=== PATIENT | female | born 1985 | race African-American/Black ===

== ENCOUNTER 2016-05-22 10:43 | Emergency (ER) | payer MEDICAID ==
[~2016-05-22] VITALS: Ht 172.7 cm; Wt 100.0 kg
[2016-05-22 10:55] VITALS: BP 158/95
[2016-05-22] MEDS ORDERED: FAMOTIDINE 20 MG/2 ML ONE (11:24)
[2016-05-22] MEDS ORDERED: METOCLOPRAMIDE 5 MG/ML, 2ML ONE (11:24)
[2016-05-22] MEDS ORDERED: FAMOTIDINE 20 MG/2 ML IVP ONE (11:30)
[2016-05-22] MEDS ORDERED: SODIUM CHLORIDE FLUSH 10ML SYR IVF ONE (11:30)
[2016-05-22] MEDS ORDERED: METOCLOPRAMIDE 5 MG/ML, 2ML IVPush ONE (11:30)
[2016-05-22] MEDS ORDERED: SODIUM CHLORIDE 0.9% 1,000ML IVBOLUS ONE (11:30)
[2016-05-22 11:50] LABS: HEMOGLOBIN 11.9 g/dL (11.7-16.4)
[2016-05-22 11:55] LABS: BLOOD UREA NITROGEN 14 mg/dL (7-18)
[2016-05-22 12:23] LABS: HCG UR OBC PASS
== END 2016-05-22 13:27 | disposition home or self-care (01) ==
LOC: ED 12:25
DX: K29.00 Acute gastritis without bleeding (principal); I10 Essential (primary) hypertension; K21.9 Gastro-esophageal reflux disease without esophagitis; E66.9 Obesity, unspecified; F17.210 Nicotine dependence, cigarettes, uncomplicated
CPT/HCPCS: 36415; 80048; 81001; 81025; 82040; 85025; 87086; 96361; 96374; 96375; 99285; J2765; J7030; S0028

== ENCOUNTER 2016-11-01 10:53 | Emergency (ER) | payer MEDICAID ==
[~2016-11-01] VITALS: Ht 167.6 cm; Wt 119.0 kg
[2016-11-01 10:56] VITALS: BP 133/85
[2016-11-01] MEDS ORDERED: BUPR150T73 PO (11:23)
[2016-11-01] MEDS ORDERED: LISI1TAB3 PO (11:23)
[2016-11-01] MEDS ORDERED: TRAZ50TA18 PO (11:23)
[2016-11-01] MEDS ORDERED: OXYcodone/APAP 5/325MG TABLET ONE (11:25)
[2016-11-01] MEDS ORDERED: DIAZEPAM 5 MG TABLET ONE (11:25)
[2016-11-01] MEDS ORDERED: DIAZEPAM 5 MG TABLET PO ONE (11:30)
[2016-11-01] MEDS ORDERED: OXYcodone/APAP 5/325MG TABLET PO ONE (11:30)
[2016-11-01] MEDS ORDERED: IBUPROFEN 200 MG TABLET PO ONE (11:30)
== END 2016-11-01 12:24 | disposition home or self-care (01) ==
LOC: ED 12:00
DX: S39.012A Strain of muscle, fascia and tendon of lower back, initial encounter (principal); S33.5XXA Sprain of ligaments of lumbar spine, initial encounter; M51.36 Other intervertebral disc degeneration, lumbar region; I10 Essential (primary) hypertension; K21.9 Gastro-esophageal reflux disease without esophagitis; X50.1XXA Overexertion from prolonged static or awkward postures, initial encounter; Y93.89 Activity, other specified; Y92.89 Other specified places as the place of occurrence of the external cause; Y99.8 Other external cause status
CPT/HCPCS: 72110